=== PATIENT | female | born 1990 | race Caucasian/White ===

== ENCOUNTER 2023-09-06 13:25 | Outpatient (REF) | payer MEDICAID, SELFPAY ==
[2023-09-06 15:26] LABS: CT PCR NOT DETECTED (Not Detect.); NG PCR NOT DETECTED (Not Detect.)
== END 2023-09-06 13:26 | disposition home or self-care (01) ==
LOC: HO.HHCLNP 13:25
PROVIDERS: Visit Provider Family Medicine
DX: R30.0 Dysuria (principal)
CPT/HCPCS: 0353U; 87086